=== PATIENT | male | born 1995 | race Caucasian/White ===

== ENCOUNTER 2024-12-17 15:37 | Emergency (ER) | payer OTHER, SELFPAY ==
[2024-12-17 15:57] VITALS: BP 134/82; PULSE 88; RESP 16; TEMP 37.1; O2SAT 99
--- NOTE | 2024-12-17 16:00 | ED.URI ---
HPI - URI/Sore Throat General Chief Complaint: Upper Respiratory Infection Stated Complaint: Sore throat/chills/headache History of Present Illness HPI Narrative: 29-year-old male presents today with complaints of 2-3 days of a sore throat. Patient states that feels better today after taking ibuprofen. He denies any fevers but felt feverish and has had chills and headache. Denies any known sick contacts but does have 2 children that go to daycare. Denies cough, congestion, nausea, vomiting, diarrhea. Related Data Home Medications ?Medication ?Instructions ?Recorded ?Confirmed ?Last Taken ?Type risperidone microspheres 25 mg/2 25 mg IM Q14D 12/17/24 12/17/24 Unknown History mL intramuscular susp,ext release Allergies Allergy/AdvReac Type Severity Reaction Status Date / Time amoxicillin Allergy Mild rash Verified 12/17/24 15:54 Sulfa (Sulfonamide Allergy Mild Rash Unverified 12/17/24 15:54 Antibiotics) sulfamethizole Allergy Mild Rash Verified 12/17/24 15:54 sulfamethoxazole Allergy Mild rash Verified 12/17/24 15:54 trimethoprim Allergy Mild rash Verified 12/17/24 15:54 Review of Systems Review of Systems: All systems reviewed & are unremarkable except as noted in HPI and below Eyes: Eyes: Reports as per HPI ENT: Reports as per HPI Cardiovascular: Cardiovascular: Reports as per HPI Respiratory: Respiratory: Reports as per HPI Genitourinary: Genitourinary: Reports as per HPI Musculoskeletal: Musculoskeletal: Reports as per HPI Integumentary/Breasts: Skin/Breast: Reports as per HPI Neurologic: Reports as per HPI Psychiatric: Psychiatric: Reports as per HPI Endocrine: Endocrine: Reports as per HPI Hematologic/Lymphatic: Hematologic/Lymphatic: Reports as per HPI Allergic/Immunologic: Allergic/Immunologic: Reports as per HPI [facility] Family History Family History (Updated 08/07/17 @ 13:41 by DOCTOR UNKNOWN) Mother Family history of thyroid disease Father Family history of elevated blood lipids Exam Const: General: cooperative, healthy appearing, comfortable, no acute distress and well developed Orientation/consciousness: patient oriented x3 HENMT: Head: normal to inspection Throat: abnormal tonsil on the right exudates and bilateral erythema and hypertrophy 3+ Eyes: General: appearance normal, both eyes and all related structures Resp: Effort & Inspection: normal respiratory effort and able to speak in complete sentences Auscultation: clear to auscultation bilaterally Cardio: Rate: regular rate Rhythm: regular rhythm Heart sounds: S1 normal heart sound present and S2 normal heart sound present Skin: General skin exam: normal color Neuro: General: patient oriented x3 Cognition (Neuro): normal cognition Speech: normal speech Psych: Mental Status: mental status grossly normal Course Course Level of Care: Express Care Visit Vital Signs Vital signs: Vital Signs Temperature 98.7 F 12/17/24 15:57 Pulse Rate 88 12/17/24 15:57 Respiratory Rate 16 12/17/24 15:57 Blood Pressure 134/82 12/17/24 15:57 Pulse Oximetry 99 12/17/24 15:57 Temperature 98.7 F 12/17/24 15:57 Pulse Rate 88 12/17/24 15:57 Respiratory Rate 16 12/17/24 15:57 Blood Pressure 134/82 12/17/24 15:57 Pulse Oximetry 99 12/17/24 15:57 MDM - URI/Sore Throat MDM Narrative Medical decision making narrative: 29-year-old male HPI as noted. Hypertrophic bilateral tonsils with exudate noted just to the right tonsil. Denies known fever but with chills. Denies fatigue. Differentials include but not limited to pharyngitis, viral infection, Strept pharyngitis, mono. Low suspicion for mono as patient is not fatigued but will keep in the differential due to hypertrophic bilateral tonsils. Strep test Positive. Will treat with azithromycin as patient is allergic to amoxicillin. Differential Diagnosis Differential diagnosis: Likely pharyngitis Medical Records Attestation: I reviewed the patient's medical records. Lab Data Attestation: I reviewed the patient's lab results. Labs: Lab Results 12/17/24 Range/Units 16:06 POC Grp A Strep Screen Positive (Negative) Discharge Plan Discharge Clinical Impression: Acute streptococcal pharyngitis Patient Disposition: Home, Self-Care Condition: Stable Instructions: Antibiotic Form, Strep Throat (DC) Additional Instructions: your strep swab was positive today. Will treat with azithromycin 2 tablets the 1st day and 1 tab each additional day for a total of 5 days treatment. Ibuprofen as needed for pain or fever. Follow-up with primary care if symptoms persist. Patient Language: Czech Prescriptions: New azithromycin 250 mg tablet See Rx Instructions PO .COMPLEX Qty: 6 0RF Rx Instructions: For 250 mg dose pack: take 500 mg today (day 1), then 250 mg for 4 days (days 2-5) No Action risperidone microspheres 25 mg/2 mL suspension,extended rel recon 25 mg IM Q14D Follow-up/Referrals: Bc Brown MD [Primary Care Provider] - (as needed) Time of Disposition: 16:33
[2024-12-17 16:09] LABS: EDSTREPNEGPOS1 Positive (Negative)
== END 2024-12-17 16:36 | disposition home or self-care (01) ==
PROVIDERS: Emergency Provider Nurse Practitioner Family; PCP Emergency Medicine
DX: J02.0 Streptococcal pharyngitis (principal)
CPT/HCPCS: 87880; 99213; G0463